=== PATIENT | male | born 1985 | race Hispanic/Latino ===

== ENCOUNTER 2021-02-18 21:13 | Emergency (ER) | payer SELFPAY ==
[2021-02-18] MEDS ORDERED: Acetaminophen 500 MG TAB ONE (22:33)
[2021-02-18] MEDS ORDERED: Aspirin Chewable 81 MG TAB ONE (23:22)
[2021-02-18] MEDS ORDERED: Dexamethasone 10 MG/ML VIAL ONE (23:22)
[2021-02-19 11:23] LABS: SARS-CoV-2 NAA Rapid Test DETECTED (NotDetected)
== END 2021-02-19 00:18 | disposition home or self-care (01) ==
LOC: ERS 21:13
DX: U07.1 COVID-19 (principal); J12.89 Other viral pneumonia
CPT/HCPCS: 71046; 96374; J1100; U0002; U0003; U0005